=== PATIENT | female | born 1990 | race Hispanic/Latino ===

== ENCOUNTER 2023-12-28 13:21 | Emergency (ER) | payer OTHER ==
[2023-12-28] MEDS ORDERED: Diazepam 5 MG TAB ONE (13:59)
[2023-12-28] MEDS ORDERED: Ketorolac Tromethamine 30 MG (1 mL) VIAL ONE (13:59)
[2023-12-28 14:29] LABS: Bilirubin Neg (Negative); Blood, Urine 25 (Negative); Clarity Clear (Clear); Glucose, Urine (Dipstick) Normal (Negative); Ketone, Urine Negative (Negative); Leukocyte 100 (Negative); Nitrite Negative (Negative); Protein, Urine (Dipstick) Negative (Neg-Trace); Specific Gravity, Urine 1.025 (1.005-1.030); Urobilinogen Normal mg/dL (Less than 2)
[2023-12-28 14:31] LABS: Pregnancy Test - Urine (BHCG) Negative (Negative); Pregu Control Background? CLEAR/WHITE (CLR/WHITE); Pregu Control Bar Appear? YES (CONTROL BAR); Specific Gravity 1.025 (1.002-1.036)
[2023-12-28 15:29] LABS: CAUTI Indications for Culture Pelvic or flank pain; Mucous/LPF 1+ LPF (<2+); RBC/HPF 0-3 HPF (0-3)
[2023-12-28 15:30] LABS: Bacteria/HPF 1+ HPF (None Seen)
[2023-12-28 15:32] LABS: Urine Culture Reflex No No
== END 2023-12-28 15:21 | disposition home or self-care (01) ==
LOC: CSHERS 13:21
DX: G57.01 Lesion of sciatic nerve, right lower limb (principal)
CPT/HCPCS: 81001; 81025; 96372; 99283; J1885